=== PATIENT | female | born 1955 | race Caucasian/White ===

== ENCOUNTER 2019-12-17 17:52 | Inpatient (IN) | payer MEDICARE ==
[~2019-12-17] VITALS: Ht 161.3 cm; Wt 140.6 kg
[2019-12-17] VITALS (7 sets, daily range): BP systolic 153–226; BP diastolic 67–107
[~2019-12-17 17:52] MED LIST: ACCUNEB0.63 MG/3 INH; BACTRIM 400-801 TAB PO; BAYER ASPIRIN325 MG PO; BUSPIRONE HCL30 MG PO; CELEBREX200 MG PO; CYMBALTA60 MG PO; FLEXERIL10 MG OR; GLUCOPHAGE850 MG PO; HYDROCODONE-APA1 TAB OR; KEFLEX500 MG PO; LINZESS; METFORMIN; MYRBETRIQ OR; NYSTATIN15 GM TP; PRILOSEC20 MG; PROAIR HFA8.5 GM INH; SYMBICORT 16010.2 GM INH; SYNTHROID200 MC1 PO; SYNTHROID25 MCG PO; TRAZODONE HCL150 MG PO; TRAZODONE OR; ZESTORETIC 20/21 TAB PO
[2019-12-17 18:14] LABS: BASOPHILS 0.1 % (0-2); EOSINOPHILS 1.6 % (0-7); HEMATOCRIT 41.1 % (36.0-48.0); IMMATURE GRANULOCYTES 0.6 % (0-5); LYMPHOCYTES 28.5 % (15-50); MCH 28.5 pg (26.0-34.0); MCHC 34.1 g/dL (31.0-37.0); MCV 83.5 fL (80.0-100.0); MONOCYTES 4.4 % (2-11); NEUTROPHILS 64.8 % (40-80); PLATELET COUNT 111 10x3/uL (130-400); RBC 4.92 10x6/uL (4.00-5.40); RDW 15.1 % (11.5-14.5); WBC 7.1 10x3/uL (4.8-10.8)
[2019-12-17 18:25] LABS: APTT 22.6 SECONDS (22.8-39.4); INR 0.91 (0.85-1.17); PROTIME 12.3 SECONDS (11.6-15.0)
[2019-12-17 18:39] LABS: ALBUMIN 3.3 g/dL (3.4-5.0); ALKALINE PHOSPHATASE 93 U/L (30-120); ALT (SGPT) 28 U/L (10-68); BILIRUBIN - TOTAL 0.59 mg/dL (0.2-1.3); CALCIUM 9.6 mg/dL (8.5-10.1); CARBON DIOXIDE 29.1 mmol/L (21.0-32.0); CHLORIDE - SERUM 98 mmol/L (98-107); CKMB 0.8 U/L (0.0-3.6); CREATINE KINASE 110 UL (21-215); CREATININE - SERUM 0.9 mg/dL (0.6-1.3); PRO BNP 315 pg/mL (0-125); PROTEIN - SERUM 7.6 g/dL (6.4-8.2); SODIUM 132 mmol/L (136-145); UREA NITROGEN 10 mg/dL (7-18); eGFR NON AFRICAN AMERICAN 67 mL/min (90-120)
[2019-12-17 18:44] LABS: CALC OSMOLALITY 283 mosm/kg (275-300); GLUCOSE 466 mg/dL (74-106); POTASSIUM - SERUM 4.4 mmol/L (3.5-5.1); TROPONIN-I < 0.017 ng/mL (0.000-0.060)
--- NOTE | 2019-12-17 20:02 | NUR ---
PT ASSISTED UP TO BEDSIDE COMMODE AT THIS TIME.
[2019-12-17 21:50] LABS: CREATINE KINASE 55 UL (21-215); TROPONIN-I 0.025 ng/mL (0.000-0.060)
--- NOTE | 2019-12-17 22:16 | NUR ---
PT ASSISTED UP TO BEDSIDE COMMODE AND BACK INTO BED AT THIS TIME. PT PROVIDED WITH ADDITIONAL BLANKETS UPON REQUEST. NO FURTHER NEEDS EXPRESSED AT THIS TIME.
[2019-12-18] VITALS (28 sets, daily range): BP systolic 120–151; BP diastolic 56–92; BMI 53.5
--- NOTE | 2019-12-18 00:07 | NUR ---
FSBS 383
--- NOTE | 2019-12-18 02:41 | NUR ---
PT MOVED TO INPATIENT HOSPITAL BED FOR COMFORT AT THIS TIME.
--- NOTE | 2019-12-18 04:08 | NUR ---
PT LYING IN BED RESTING, BREATHS EVEN. PT DENIES ANY COMPLAINTS AT THIS TIME.
[2019-12-18 04:47] LABS: BASOPHILS 0.2 % (0-2); EOSINOPHILS 0.7 % (0-7); HEMATOCRIT 40.1 % (36.0-48.0); HEMOGLOBIN 13.2 g/dL (12-16); IMMATURE GRANULOCYTES 0.3 % (0-5); LYMPHOCYTES 20.2 % (15-50); MCH 27.7 pg (26.0-34.0); MCHC 32.9 g/dL (31.0-37.0); MCV 84.2 fL (80.0-100.0); MEAN PLATELET VOLUME 11.1 fL (7.4-10.4); MONOCYTES 4.7 % (2-11); NEUTROPHILS 73.9 % (40-80); RBC 4.76 10x6/uL (4.00-5.40); RDW 15.1 % (11.5-14.5)
[2019-12-18 04:59] LABS: PLATELET COUNT 244 10x3/uL (130-400)
[2019-12-18 05:11] LABS: ALKALINE PHOSPHATASE 85 U/L (30-120); CALCIUM 8.9 mg/dL (8.5-10.1); CARBON DIOXIDE 29.5 mmol/L (21.0-32.0); CHLORIDE - SERUM 101 mmol/L (98-107); CHOL - HDL RATIO 2.8 ratio (2.3-4.1); CHOLESTEROL, TOTAL 174 mg/dL (0-200); CREATININE - SERUM 0.8 mg/dL (0.6-1.3); HDL CHOLESTEROL 63 mg/dL (32-96); LDL CHOLESTEROL 92 mg/dL (0-100); LDL-HDL RATIO 1.5 ratio (1.5-3.5); MAGNESIUM - SERUM 1.8 mg/dL (1.8-2.4); PHOSPHOROUS 2.1 mg/dL (2.5-4.9); PRO BNP 507 pg/mL (0-125); SODIUM 135 mmol/L (136-145); TRIGLYCERIDE 98 mg/dL (30-200); eGFR NON AFRICAN AMERICAN 76 mL/min (90-120)
[2019-12-18 05:12] LABS: ALT (SGPT) 18 U/L (10-68); CALC OSMOLALITY 281 mosm/kg (275-300); GLUCOSE 313 mg/dL (74-106); POTASSIUM - SERUM 3.1 mmol/L (3.5-5.1); THYROID STIMULATING HORMONE 57.25 uIU/mL (0.36-3.74); UREA NITROGEN 13 mg/dL (7-18)
[2019-12-18 05:40] LABS: CKMB 1.4 U/L (0.0-3.6); CREATINE KINASE 64 UL (21-215)
[2019-12-18 05:42] LABS: TROPONIN-I 0.182 ng/mL (0.000-0.060)
--- NOTE | 2019-12-18 07:01 | NUR ---
REPORT GIVEN TO CRYSTAL BRUSH.
[2019-12-18 10:21] LABS: CKMB 1.4 U/L (0.0-3.6); CREATINE KINASE 66 UL (21-215)
[2019-12-18 10:24] LABS: TROPONIN-I 0.117 ng/mL (0.000-0.060)
--- NOTE | 2019-12-18 17:30 | NUR ---
Pt arrived to unit around 1718. Connected to icu monitor. On room air. Has 20g piv to RFA. Alert and oriented. Safety measures in place. Pt able to communicate needs. Ambulates with minimal assist. Will continue to monitor.
--- NOTE | 2019-12-18 19:00 | NUR ---
Report received from off going nurse. Pt was sitting up in bed. Pt requested a gown upon my entering room. Gown was provided. Pt expressed her frustration at her current situation. Efforts were made to correct the situation and make Pt happy. Pt stated satisfaction with results. No further needs at this time.
[2019-12-19] VITALS (27 sets, daily range): BP systolic 96–186; BP diastolic 42–80
[2019-12-19 07:19] LABS: BASOPHILS 0.5 % (0-2); EOSINOPHILS 2.2 % (0-7); HEMATOCRIT 38.4 % (36.0-48.0); HEMOGLOBIN 12.5 g/dL (12-16); IMMATURE GRANULOCYTES 0.4 % (0-5); MCH 28.2 pg (26.0-34.0); MCHC 32.6 g/dL (31.0-37.0); MEAN PLATELET VOLUME 10.6 fL (7.4-10.4); MONOCYTES 6.4 % (2-11); NEUTROPHILS 57.5 % (40-80); PLATELET COUNT 256 10x3/uL (130-400); RBC 4.44 10x6/uL (4.00-5.40); RDW 15.9 % (11.5-14.5)
[2019-12-19 07:20] LABS: MCV 86.5 fL (80.0-100.0); WBC 8.2 10x3/uL (4.8-10.8)
[2019-12-19 08:09] LABS: CALC OSMOLALITY 284 mosm/kg (275-300); CALCIUM 8.4 mg/dL (8.5-10.1); CARBON DIOXIDE 27.5 mmol/L (21.0-32.0); CHLORIDE - SERUM 105 mmol/L (98-107); CREATININE - SERUM 0.8 mg/dL (0.6-1.3); MAGNESIUM - SERUM 1.7 mg/dL (1.8-2.4); POTASSIUM - SERUM 3.2 mmol/L (3.5-5.1); SODIUM 139 mmol/L (136-145); UREA NITROGEN 15 mg/dL (7-18); eGFR NON AFRICAN AMERICAN 76 mL/min (90-120)
[2019-12-19 08:10] LABS: GLUCOSE 203 mg/dL (74-106); PHOSPHOROUS 3.4 mg/dL (2.5-4.9)
[2019-12-20] VITALS (18 sets, daily range): BP systolic 119–168; BP diastolic 62–81
--- NOTE | 2019-12-20 04:17 | NUR ---
Patient complaining of pain at IV site. Site was examined and found to be infiltrated. IV fluid stopped until another access site can be obtained.
[2019-12-20 08:28] LABS: BASOPHILS 0.4 % (0-2); EOSINOPHILS 3.2 % (0-7); HEMATOCRIT 37.2 % (36.0-48.0); IMMATURE GRANULOCYTES 0.3 % (0-5); LYMPHOCYTES 26.4 % (15-50); MCH 28.3 pg (26.0-34.0); MCHC 32.3 g/dL (31.0-37.0); MCV 87.7 fL (80.0-100.0); MONOCYTES 6.6 % (2-11); NEUTROPHILS 63.1 % (40-80); PLATELET COUNT 249 10x3/uL (130-400); RBC 4.24 10x6/uL (4.00-5.40); RDW 16.2 % (11.5-14.5); WBC 7.6 10x3/uL (4.8-10.8)
[2019-12-20 08:45] LABS: CALC OSMOLALITY 283 mosm/kg (275-300); CALCIUM 8.8 mg/dL (8.5-10.1); CARBON DIOXIDE 29.5 mmol/L (21.0-32.0); CHLORIDE - SERUM 104 mmol/L (98-107); CREATININE - SERUM 0.8 mg/dL (0.6-1.3); GLUCOSE 231 mg/dL (74-106); MAGNESIUM - SERUM 1.7 mg/dL (1.8-2.4); PHOSPHOROUS 3.5 mg/dL (2.5-4.9); POTASSIUM - SERUM 3.5 mmol/L (3.5-5.1); SODIUM 138 mmol/L (136-145); UREA NITROGEN 15 mg/dL (7-18); eGFR NON AFRICAN AMERICAN 76 mL/min (90-120)
--- NOTE | 2019-12-20 10:51 | NUR ---
PT AMBULATING WITHIN ROOM-NO DIFFICULTY-L UPPER ARM IV SALINE LOCKED PROVIDED WITH HYGEINE PRODUCTS-AND ORAL CARE
--- NOTE | 2019-12-20 13:19 | NUR ---
AMBULATING IN WITH LITTLE DIFFICULTY-CONTINUES TO EXPRESS CONCERN REGARDING HOUSING SITUATION-HOME DIABETES MANAGEMENT-STRONGLY ENCOURAGED TO LOOK UP DIABETIC ASSOCIATION FOR [facility]-ENCOURAGED TO ADDRESS HOUSING AUTHORITIES
--- NOTE | 2019-12-20 14:33 | NUR ---
DR SLATER AT BEDSIDE-SPOKE WITH PT REGARDING STATUS AND PLAN OF CARE
--- NOTE | 2019-12-21 01:05 | NUR ---
12/20/2019 1900 PT. UP TO BATHROOM, MINIMAL ASSIST. BACK TO BED AND HOOKED BACK UP TO MONITOR. NO IV MAINTENANCE FLUIDS RUNNING AT THIS TIME. NO SIGNS OF DISTRESS AND DENIES C/O PAIN. WILL CONTINUE TO MONITOR. BED IN LOWEST POSITION CALL LIGHT IN REACH
[2019-12-21 03:00] VITALS: BP 151/80
[2019-12-21 04:40] LABS: BASOPHILS 0.5 % (0-2); EOSINOPHILS 3.4 % (0-7); HEMATOCRIT 39.1 % (36.0-48.0); HEMOGLOBIN 12.5 g/dL (12-16); IMMATURE GRANULOCYTES 0.4 % (0-5); LYMPHOCYTES 34.2 % (15-50); MCH 27.8 pg (26.0-34.0); MCV 87.1 fL (80.0-100.0); MEAN PLATELET VOLUME 11.6 fL (7.4-10.4); MONOCYTES 7.5 % (2-11); PLATELET COUNT 267 10x3/uL (130-400); RBC 4.49 10x6/uL (4.00-5.40)
[2019-12-21 04:57] LABS: ANION GAP 7.7 mmol/L (8-16); CALCIUM 9.2 mg/dL (8.5-10.1); CARBON DIOXIDE 30.8 mmol/L (21.0-32.0); CREATININE - SERUM 0.9 mg/dL (0.6-1.3); MAGNESIUM - SERUM 1.6 mg/dL (1.8-2.4); PHOSPHOROUS 3.8 mg/dL (2.5-4.9); POTASSIUM - SERUM 3.5 mmol/L (3.5-5.1)
[2019-12-21] MEDS ORDERED: GLIMEPIRIDE4 MG PO (10:21)
--- NOTE | 2019-12-21 11:41 | MORECARE ---
CASE MANAGEMENT DISCHARGE SUMMARY PATIENT: CHANTAL ALLEN UNIT: [id number] ADM DATE: 12/17/19 AGE: 64 : 54 SEX: F ROOM/BED: D.05 AUTHOR: ALEXUS DOMINGUEZ PHYSICIAN: REFERRING PHYSICIAN: DIVINA WEBER MD DATE OF SERVICE: 12/21/19 Discharge Plan Patient Name: CHANTAL ALLEN Facility: [facility]:[place] : 1955 Planned Disposition: Anticipated Discharge Date: Discharge Date: Expected LOS: Initial Reviewer: [email or web address] Initial Review Date: 12/18/2019 Generated: 12/21/19 12:41 pm Comments DCP- Discharge Planning Updated by [email or web address]: Sidney Klein on 12/20/19 4:[address] Patient Name: CHANTAL ALLEN Admission Status: ER Accout number: [id number] Admission Date: 12-17-2019 : 1955 Admission Diagnosis: Attending: DIVINA WEBER Current LOS: 3 Anticipated DC Date: Planned Disposition: Primary Insurance: [employer] MEDICARE ADV Discharge Planning Comments: Patient Room Visit. Patient states that she has no money for "anything". Patient states that due to her medicare and status, she is not eligible for foodstamps. Patient states that by end of the month all money is spent and she cannot fill her medications. Patient further stated that she does not have transportation to get to [facility] for medications but she can use her wheelchair to get to [facility]. Patient stated that she will need transportation home because there is no one who can provide transportation for her and she does not have enough money for a ride. Patient stated that she would like to have A bariatric Rollator and an extra large bedside commode. Patient states that she is not eligible for medicaid. Visit Summary: (1) expendable income for medications, copays, and transportation = $0; (2) Desires: XL bedside Commode, Rollator Walker, and Glucometer with strips & lancets; and (3) a Ride Home. Provider Scribe: Sidney Klein Patient Name: CHANTAL ALLEN Page 90800 at 1141 All edits/amendments must be made on the electronic document DICTATION DATE: 12/21/19 1141 REFINERY OPERATOR CRUDE UNIT: MERCEDES 12/21/19 1141 RPT#: [id number] DC DATE: STATUS: ADM IN [facility] [address] [place] [address] END OF REPORT
--- NOTE | 2019-12-21 12:24 | MORECARE ---
CASE MANAGEMENT DISCHARGE SUMMARY PATIENT: CHANTAL ALLEN UNIT: [id number] ADM DATE: 12/17/19 AGE: 64 : 54 SEX: F ROOM/BED: D.05 AUTHOR: ALEXUS DOMINGUEZ PHYSICIAN: REFERRING PHYSICIAN: DIVINA WEBER MD DATE OF SERVICE: 12/21/19 Discharge Plan Patient Name: CHANTAL ALLEN Facility: [facility]:[place] : 1955 Planned Disposition: Anticipated Discharge Date: Discharge Date: Expected LOS: Initial Reviewer: [email or web address] Initial Review Date: 12/18/2019 Generated: 12/21/19 1:24 pm Comments DCP- Discharge Planning Updated by [email or web address]: Sidney Klein on 12/20/19 4:[address] Patient Name: CHANTAL ALLEN Admission Status: ER Accout number: [id number] Admission Date: 12-17-2019 : 1955 Admission Diagnosis: Attending: DIVINA WEBER Current LOS: 3 Anticipated DC Date: Planned Disposition: Primary Insurance: [employer] MEDICARE ADV Discharge Planning Comments: Patient Room Visit. Patient states that she has no money for "anything". Patient states that due to her medicare and status, she is not eligible for foodstamps. Patient states that by end of the month all money is spent and she cannot fill her medications. Patient further stated that she does not have transportation to get to [facility] for medications but she can use her wheelchair to get to [facility]. Patient stated that she will need transportation home because there is no one who can provide transportation for her and she does not have enough money for a ride. Patient stated that she would like to have A bariatric Rollator and an extra large bedside commode. Patient states that she is not eligible for medicaid. Visit Summary: (1) expendable income for medications, copays, and transportation = $0; (2) Desires: XL bedside Commode, Rollator Walker, and Glucometer with strips & lancets; and (3) a Ride Home. Kettle Loader: Sidney Klein External Providers External Provider: OTHER-OTHER Next Contact Date: Service Request Date: Service Type: Resolution: Reviewer: Comments: Last DP export: 12/21/19 10:41 a Patient Name: CHANTAL ALLEN Page 53460 at 1224 All edits/amendments must be made on the electronic document DICTATION DATE: 12/21/191223 CYBER SECURITY CONSULTANT: MERCEDES 12/21/19 1224 RPT#: [id number] DC DATE: STATUS: ADM IN [facility] [address] [place] [address] END OF REPORT
[2019-12-21 12:36] VITALS: Ht 161.3 cm; Wt 140.6 kg
--- NOTE | 2019-12-21 12:39 | MORECARE ---
CASE MANAGEMENT DISCHARGE SUMMARY PATIENT: CHANTAL ALLEN UNIT: [id number] ADM DATE: 12/17/19 AGE: 64 : 54 SEX: F ROOM/BED: D.05 AUTHOR: ALBERTODOC PHYSICIAN: REFERRING PHYSICIAN: DIVINA WEBER MD DATE OF SERVICE: 12/21/19 Discharge Plan Patient Name: CHANTAL ALLEN Facility: [facility]:[place] : 1955 Planned Disposition: Anticipated Discharge Date: Discharge Date: Expected LOS: Initial Reviewer: [email or web address] Initial Review Date: 12/18/2019 Generated: 12/21/19 1:38 pm Comments DCP- Discharge Planning Updated by [email or web address]: Sidney Klein on 12/20/19 4:[address] Patient Name: CHANTAL ALLEN Admission Status: ER Accout number: [id number] Admission Date: 12-17-2019 : 1955 Admission Diagnosis: Attending: DIVINA WEBER Current LOS: 3 Anticipated DC Date: Planned Disposition: Primary Insurance: [employer] MEDICARE ADV Discharge Planning Comments: Patient Room Visit. Patient states that she has no money for "anything". Patient states that due to her medicare and status, she is not eligible for foodstamps. Patient states that by end of the month all money is spent and she cannot fill her medications. Patient further stated that she does not have transportation to get to [facility] for medications but she can use her wheelchair to get to [facility]. Patient stated that she will need transportation home because there is no one who can provide transportation for her and she does not have enough money for a ride. Patient stated that she would like to have A bariatric Rollator and an extra large bedside commode. Patient states that she is not eligible for medicaid. Visit Summary: (1) expendable income for medications, copays, and transportation = $0; (2) Desires: XL bedside Commode, Rollator Walker, and Glucometer with strips & lancets; and (3) a Ride Home. Victims Advocate Clerk/Specialist: Sidney Klein External Providers External Provider: [facility] Next Contact Date: Service Request Date: Service Type: Resolution: Reviewer: Comments: Last DP export: 12/21/19 11:24 a Patient Name: CHANTAL ALLEN Page 46989 at 1239 All edits/amendments must be made on the electronic document DICTATION DATE: 12/21/19 1239 FACULTY HEAD: MERCEDES 12/21/19 1239 RPT#: [id number] DC DATE: STATUS: ADM IN [facility] [address] [place] [address] END OF REPORT
--- NOTE | 2019-12-21 14:46 | MORECARE ---
CASE MANAGEMENT DISCHARGE SUMMARY PATIENT: CHANTAL ALLEN UNIT: [id number] ADM DATE: 12/17/19 AGE: 64 : 53 SEX: F ROOM/BED: D.05 AUTHOR: ALEXUS DOMINGUEZ PHYSICIAN: REFERRING PHYSICIAN: DIVINA WEBER MD DATE OF SERVICE: 12/21/19 Discharge Plan Patient Name: CHANTAL ALLEN Facility: [facility]:[place] : 1955 Planned Disposition: Anticipated Discharge Date: Discharge Date: Expected LOS: Initial Reviewer: [email or web address] Initial Review Date: 12/18/2019 Generated: 12/21/19 3:45 pm Comments DCP- Discharge Planning Updated by [email or web address]: Sidney Klein on 12/20/19 4:[address] Patient Name: CHANTAL ALLEN Admission Status: ER Accout number: [id number] Admission Date: 12-17-2019 : 1955 Admission Diagnosis: Attending: DIVINA WEBER Current LOS: 3 Anticipated DC Date: Planned Disposition: Primary Insurance: [employer] MEDICARE ADV Discharge Planning Comments: Patient Room Visit. Patient states that she has no money for "anything". Patient states that due to her medicare and status, she is not eligible for foodstamps. Patient states that by end of the month all money is spent and she cannot fill her medications. Patient further stated that she does not have transportation to get to [facility] for medications but she can use her wheelchair to get to [facility]. Patient stated that she will need transportation home because there is no one who can provide transportation for her and she does not have enough money for a ride. Patient stated that she would like to have A bariatric Rollator and an extra large bedside commode. Patient states that she is not eligible for medicaid. Visit Summary: (1) expendable income for medications, copays, and transportation = $0; (2) Desires: XL bedside Commode, Rollator Walker, and Glucometer with strips & lancets; and (3) a Ride Home. [employer] Consultant: Sidney Klein External Providers External Provider: [facility] Next Contact Date: Service Request Date: Service Type: Resolution: Reviewer: Comments: Last DP export: 12/21/19 11:39 a Patient Name: CHANTAL ALLEN Page [phone] at 1446 All edits/amendments must be made on the electronic document DICTATION DATE: 12/21/191444 ULTRASONIC CLEANER: MERCEDES 12/21/191444 RPT#: [id number] DC DATE: STATUS: ADM IN [facility] [address] [place] [address] END OF REPORT
--- NOTE | 2019-12-21 16:26 | MORECARE ---
CASE MANAGEMENT DISCHARGE SUMMARY PATIENT: CHANTAL ALLEN UNIT: [id number] ADM DATE: 12/17/19 AGE: 64 : 53 SEX: F ROOM/BED: D.05 AUTHOR: ALEXUS DOMINGUEZ PHYSICIAN: REFERRING PHYSICIAN: DVIINA WEBER MD DATE OF SERVICE: 12/21/19 Discharge Plan Patient Name: CHANTAL ALLEN Facility: [facility]:[place] : 1955 Planned Disposition: Home with Home Health Anticipated Discharge Date: Discharge Date: Expected LOS: Initial Reviewer: [id number] Initial Review Date: 12/18/2019 Generated: 12/21/19 5:25 pm Comments DCP- Discharge Planning Updated by [email or web address]: Sidney Klein on 12/20/19 4:[address] Patient Name: CHANTAL ALLEN Admission Status: ER Accout number: [id number] Admission Date: 12-17-2019 : 1955 Admission Diagnosis: Attending: DIVINA WEBER Current LOS: 3 Anticipated DC Date: Planned Disposition: Primary Insurance: [employer] MEDICARE ADV Discharge Planning Comments: Patient Room Visit. Patient states that she has no money for "anything". Patient states that due to her medicare and status, she is not eligible for foodstamps. Patient states that by end of the month all money is spent and she cannot fill her medications. Patient further stated that she does not have transportation to get to [facility] for medications but she can use her wheelchair to get to [facility]. Patient stated that she will need transportation home because there is no one who can provide transportation for her and she does not have enough money for a ride. Patient stated that she would like to have A bariatric Rollator and an extra large bedside commode. Patient states that she is not eligible for medicaid. Visit Summary: (1) expendable income for medications, copays, and transportation = $0; (2) Desires: XL bedside Commode, Rollator Walker, and Glucometer with strips & lancets; and (3) a Ride Home. Geospatial Systems Integrator: Sidney Klein DCPIA - Discharge Planning Initial Assessment Updated by [email or web address]: Bernice Gregg on 12/21/19 4:25 pm * Is the patient Alert and Oriented? Yes * How many steps to enter\\exit or inside your home? * PCP JOSR * [facility] * Preadmission Environment Home with Family * ADLs Partial Dependent * Partial ADLs (Assistance needed) Ambulation * Equipment Power Chair or Electric Scooter * List name and contact numbers for known caregivers / representatives who currently or will assist patient after discharge: PARMJIT ALLEN - [phone] * Verbal permission to speak to the caregivers and representatives has been obtained from the patient. Yes * Community resources currently utilized None * Additional services required to return to the preadmission environment? No * Can the patient safely return to the preadmission environment? Yes * Has this patient been hospitalized within the prior 30 days at any hospital? No Coverage Notice Reviewer: [id number] Horace Gregg Notice Issued Date-Time: 12/21/2019 12:02 Notice Type: Patient Choice Letter Notice Delivered To: Patient Relationship to Patient: Self Air Purifier Servicer Name: Delivery Method: HAND - Hand Delivered Kelly Days: Prior Verbal Notification: Recipient Understood Notice: Yes Recipient Signature: Yes Med Rec Note Co-signed by Attending: Coverage Notice Comment: DME AND HH NO PREFERENCE WHERE INSURANCE COVERS Reviewer: [email or web address] Horace Gregg Notice Issued Date-Time: 12/21/2019 12:25 Notice Type: IM Discharge Notice Notice Delivered To: Patient Relationship to Patient: Self Air Purifier Servicer Name: Delivery Method: HAND - Hand Delivered Kelly Days: Prior Verbal Notification: Recipient Understood Notice: Yes Recipient Signature: Yes Med Rec Note Co-signed by Attending: Coverage Notice Comment: Last DP export: 12/21/19 1:46 p Patient Name: CHANTAL ALLEN Page [phone] at 1626 All edits/amendments must be made on the electronic document DICTATION DATE: 12/21/19 1625 INTERNAL GRINDER TENDER: MERCEDES 12/21/19 1625 RPT#: [id number] AL DATE: STATUS: ADM IN [facility] [address] [place] [address] END OF REPORT
--- NOTE | 2019-12-21 16:48 | MORECARE ---
CASE MANAGEMENT DISCHARGE SUMMARY PATIENT: CHANTAL ALLEN UNIT: [id number] ADM DATE: 12/17/19 AGE: 64 : 53 SEX: F ROOM/BED: D.05 AUTHOR: ALBERTO,DOC PHYSICIAN: REFERRING PHYSICIAN: DIVINA WEBER MD DATE OF SERVICE: 12/21/19 Discharge Plan Patient Name: CHANTAL ALLEN Facility: [facility]:[place] : 1955 Planned Disposition: Home with Home Health Anticipated Discharge Date: Discharge Date: Expected LOS: Initial Reviewer: [email or web address] Initial Review Date: 12/18/2019 Generated: 12/21/19 5:47 pm Comments DCP- Discharge Planning Updated by [email or web address]: Bernice Gregg on 12/21/19 3:[address] CM spoke with patient and she stated that she needs help with medications and is wanting a bariatric BSC, and Rollator. CM explained that she would try but is uncertain if insurance will pay for Rollator since patient has an electric w/c. Patient explained that she will not be able to ambulate with out it other than a few steps. CM stated that we would send the order out and see if it can be approved. MONIK signed for [facility] and [facility]. CM sent referral to [facility] and they will admit on Saturday. Patient has to go to her f/u appointment Dr. Martin. CM gave patient two bus tickets to be able to go to f/u appointment since she doesn't have transportation. CM sent order to [facility] for Rollator and BSC in bariatric size. [facility] doesn't have any in stock but will deliver to patient's home if approved by insurance. CM will get patient's diabetic medication and b/p meds for 30 day supply $8.00. since she states she doesn't have any money for meds. CM gave patient [facility] card and information on [facility] mail delivery for medications. CM also gave patient information on [employer] [facility] that could supply patient with glucometer and diabetic supplies delivered to the home. CM will get a Taxi for patient transportation home today. DCP- Discharge Planning Updated by [email or web address]: Sidney Klein on 12/20/19 4:[address] Patient Name: CHANTAL ALLEN Admission Status: ER Accout number: [id number] Admission Date: 12-17-2019 : 1955 Admission Diagnosis: Attending: DIVINA WEBER Current LOS: 3 Anticipated DC Date: Planned Disposition: Primary Insurance: [employer] MEDICARE ADV Discharge Planning Comments: Patient Room Visit. Patient states that she has no money for "anything". Patient states that due to her medicare and status, she is not eligible for foodstamps. Patient states that by end of the month all money is spent and she cannot fill her medications. Patient further stated that she does not have transportation to get to [facility] for medications but she can use her wheelchair to get to [facility]. Patient stated that she will need transportation home because there is no one who can provide transportation for her and she does not have enough money for a ride. Patient stated that she would like to have A bariatric Rollator and an extra large bedside commode. Patient states that she is not eligible for medicaid. Visit Summary: (1) expendable income for medications, copays, and transportation = $0; (2) Desires: XL bedside Commode, Rollator Walker, and Glucometer with strips & lancets; and (3) a Ride Home. Developer Automatic: Sidney Klein DCPIA - Discharge Planning Initial Assessment Updated by [email or web address]: Bernice Gregg on 12/21/19 4:25 pm * Is the patient Alert and Oriented? Yes * How many steps to enter\\exit or inside your home? * PCP JOSR * Pharmacy [facility] * Preadmission Environment Home with Family * ADLs Partial Dependent * Partial ADLs (Assistance needed) Ambulation * Equipment Power Chair or Electric Scooter * List name and contact numbers for known caregivers / representatives who currently or will assist patient after discharge: PARMJIT ALLEN - [phone] * Verbal permission to speak to the caregivers and representatives has been obtained from the patient. Yes * Community resources currently utilized None * Additional services required to return to the preadmission environment? No * Can the patient safely return to the preadmission environment? Yes * Has this patient been hospitalized within the prior 30 days at any hospital? No Coverage Notice Reviewer: [email or web address] - Bernice Gregg Notice Issued Date-Time: 12/21/2019 12:02 Notice Type: Patient Choice Letter Notice Delivered To: Patient Relationship to Patient: Self Director Of Corporate Sales Name: Delivery Method: HAND - Hand Delivered Kelly Days: Prior Verbal Notification: Recipient Understood Notice: Yes Recipient Signature: Yes Med Rec Note Co-signed by Attending: Coverage Notice Comment: DME AND HH NO PREFERENCE WHERE INSURANCE COVERS Reviewer: [email or web address] Horace Gregg Notice Issued Date-Time: 12/21/2019 12:25 Notice Type: IM Discharge Notice Notice Delivered To: Patient Relationship to Patient: Self Director Of Corporate Sales Name: Delivery Method: HAND - Hand Delivered Kelly Days: Prior Verbal Notification: Recipient Understood Notice: Yes Recipient Signature: Yes Med Rec Note Co-signed by Attending: Coverage Notice Comment: Last DP export: 12/21/19 3:26 p Patient Name: CHANTAL ALLEN Page [id number] at 1648 All edits/amendments must be made on the electronic document DICTATION DATE: 12/21/191647 TRAVEL OCCUPATIONAL THERAPIST: MERCEDES 12/21/191647 RPT#: [id number] DC DATE: STATUS: ADM IN [facility] [address] [place] [address] END OF REPORT
--- NOTE | 2019-12-22 23:26 | MORECARE ---
CASE MANAGEMENT DISCHARGE SUMMARY PATIENT: CHANTAL ALLEN UNIT: [id number] ADM DATE: 12/17/19 AGE: 64 : 53 SEX: F ROOM/BED: D.05 AUTHOR: ALBERTODOC PHYSICIAN: REFERRING PHYSICIAN: DIVINA WEBER MD DATE OF SERVICE: 12/22/19 Discharge Plan Patient Name: CHANTAL ALLEN Facility: [facility]:[place] : [id number] Planned Disposition: Home with Home Health Anticipated Discharge Date: Discharge Date: 12/21/2019 Expected LOS: Initial Reviewer: [id number] Initial Review Date: 12/18/2019 Generated: 12/23/19 12:25 am Comments DCP- Discharge Planning Updated by [email or web address]: Bernice Gregg on 12/21/19 3:[address] CM spoke with patient and she stated that she needs help with medications and is wanting a bariatric BSC, and Rollator. CM explained that she would try but is uncertain if insurance will pay for Rollator since patient has an electric w/c. Patient explained that she will not be able to ambulate with out it other than a few steps. CM stated that we would send the order out and see if it can be approved. MONIK signed for [facility] and [facility]. CM sent referral to [facility] and they will admit on Saturday. Patient has to go to her f/u appointment Dr. Martin. CM gave patient two bus tickets to be able to go to f/u appointment since she doesn't have transportation. CM sent order to [facility] for Rollator and BSC in bariatric size. [facility] doesn't have any in stock but will deliver to patient's home if approved by insurance. CM will get patient's diabetic medication and b/p meds for 30 day supply $8.00. since she states she doesn't have any money for meds. CM gave patient [facility] card and information on [facility] mail delivery for medications. CM also gave patient information on [employer] that could supply patient with glucometer and diabetic supplies delivered to the home. CM will get a Taxi for patient transportation home today. DCP- Discharge Planning Updated by [id number]: Sidney Klein on 12/20/19 4:[address] Patient Name: CHANTAL ALLEN Admission Status: ER Accout number: [id number] Admission Date: 12-17-2019 : 1955 Admission Diagnosis: Attending: DIVINA WEBER Current LOS: 3 Anticipated DC Date: Planned Disposition: Primary Insurance: [employer] ADV Discharge Planning Comments: Patient Room Visit. Patient states that she has no money for "anything". Patient states that due to her medicare and status, she is not eligible for foodstamps. Patient states that by end of the month all money is spent and she cannot fill her medications. Patient further stated that she does not have transportation to get to [facility] for medications but she can use her wheelchair to get to [facility]. Patient stated that she will need transportation home because there is no one who can provide transportation for her and she does not have enough money for a ride. Patient stated that she would like to have A bariatric Rollator and an extra large bedside commode. Patient states that she is not eligible for medicaid. Visit Summary: (1) expendable income for medications, copays, and transportation = $0; (2) Desires: XL bedside Commode, Rollator Walker, and Glucometer with strips & lancets; and (3) a Ride Home. Campus Director: Sidney Klein [facility] - Discharge Planning Initial Assessment Updated by [email or web address]: Bernice Gregg on 12/21/19 4:25 pm * Is the patient Alert and Oriented? Yes * How many steps to enter\\exit or inside your home? * PCP JOSR * Pharmacy [facility] * Preadmission Environment Home with Family * ADLs Partial Dependent * Partial ADLs (Assistance needed) Ambulation * Equipment Power Chair or Electric Scooter * List name and contact numbers for known caregivers / representatives who currently or will assist patient after discharge: PARMJIT ALLEN - [phone] * Verbal permission to speak to the caregivers and representatives has been obtained from the patient. Yes * Community resources currently utilized None * Additional services required to return to the preadmission environment? No * Can the patient safely return to the preadmission environment? Yes * Has this patient been hospitalized within the prior 30 days at any hospital? No Coverage Notice Reviewer: [id number] - Bernice Gregg Notice Issued Date-Time: 12/21/2019 12:02 Notice Type: Patient Choice Letter Notice Delivered To: Patient Relationship to Patient: Self Contaminated Land Consultant Name: Delivery Method: HAND - Hand Delivered Kelly Days: Prior Verbal Notification: Recipient Understood Notice: Yes Recipient Signature: Yes Med Rec Note Co-signed by Attending: Coverage Notice Comment: DME AND HH NO PREFERENCE WHERE INSURANCE COVERS Reviewer: [id number] Horace Gregg Notice Issued Date-Time: 12/21/2019 12:25 Notice Type: IM Discharge Notice Notice Delivered To: Patient Relationship to Patient: Self Contaminated Land Consultant Name: Delivery Method: HAND - Hand Delivered Kelly Days: Prior Verbal Notification: Recipient Understood Notice: Yes Recipient Signature: Yes Med Rec Note Co-signed by Attending: Coverage Notice Comment: Last DP export: 12/21/19 3:48 p Patient Name: CHANTAL ALLEN Page [id number] at 2326 All edits/amendments must be made on the electronic document DICTATION DATE: 12/22/192324 NITRIC ACID PLANT OPERATOR: MERCEDES 12/22/192324 RPT#: [id number] DC DATE:12/21/19 STATUS: [facility] [address] [place] [address] END OF REPORT
== END 2019-12-21 18:46 | disposition home health service (06) | DRG 305 ==
LOC: D.ER 17:52 → D.EDHOLD 19:50 → D.CVICU 19:50
PROVIDERS: Family Medicine; ADMIT Emergency Medicine; ATTEND Emergency Medicine
DX: I16.1 Hypertensive emergency (principal); Z68.44 Body mass index [BMI] 60.0-69.9, adult; R07.9 Chest pain, unspecified; I20.9 Angina pectoris, unspecified; E66.01 Morbid (severe) obesity due to excess calories; G62.9 Polyneuropathy, unspecified; G47.33 Obstructive sleep apnea (adult) (pediatric); J45.909 Unspecified asthma, uncomplicated; F41.8 Other specified anxiety disorders; E03.9 Hypothyroidism, unspecified; E78.5 Hyperlipidemia, unspecified; K21.9 Gastro-esophageal reflux disease without esophagitis; E11.9 Type 2 diabetes mellitus without complications

== ENCOUNTER 2020-01-12 23:12 | Emergency (ER) | payer MEDICARE ==
[~2020-01-12] VITALS: Ht 161.3 cm; Wt 135.0 kg
[~2020-01-12 23:12] MED LIST changes: +GLIMEPIRIDE4 MG PO
[2020-01-12 23:13] VITALS: Ht 161.3 cm; Wt 135.0 kg
[2020-01-13] MEDS ORDERED: SENNA LAXATIVE8.6 MG PO (00:20)
[2020-01-13] MEDS ORDERED: MIRALAX17 GM PO (00:20)
[2020-01-13] MEDS ORDERED: TORADOL10 MG PO (00:20)
[2020-01-13 01:03] VITALS: BP 111/58
== END 2020-01-13 01:05 | disposition home or self-care (01) ==
LOC: D.ER 23:12
DX: M54.5 Low back pain (principal); G89.29 Other chronic pain; K59.00 Constipation, unspecified; M54.10 Radiculopathy, site unspecified; E11.40 Type 2 diabetes mellitus with diabetic neuropathy, unspecified; E03.9 Hypothyroidism, unspecified; I10 Essential (primary) hypertension; J45.909 Unspecified asthma, uncomplicated; Z99.81 Dependence on supplemental oxygen; Z79.84 Long term (current) use of oral hypoglycemic drugs